=== PATIENT | male | born 1970 | race Hispanic/Latino ===

== ENCOUNTER → 2021-08-16 | Outpatient (CLI) | payer OTHER | END | disposition home or self-care (01) | LOC: OIH 09:06 | PROVIDERS: ATTEND Internal Medicine Cardiovascular Disease | DX: Z13.6 Encounter for screening for cardiovascular disorders (principal); I25.10 Atherosclerotic heart disease of native coronary artery without angina pectoris; I51.5 Myocardial degeneration | CPT/HCPCS: 75571 ==